=== PATIENT | female | born 1975 | race Caucasian/White ===

== ENCOUNTER 2019-01-24 13:18 | Emergency (ER) | payer OTHER ==
[~2019-01-24] VITALS: Ht 160 cm; Wt 86.2 kg
[2019-01-24] MEDS ORDERED: NABUMETONE 750750 M1 PO (13:48)
[2019-01-24] MEDS ORDERED: CENTANY30 GM TOP (13:48)
[2019-01-24] MEDS ORDERED: DOXYCYCLINE 10100 MG PO (13:48)
[2019-01-24 14:56] VITALS: BP 148/95
== END 2019-01-24 14:57 | disposition home or self-care (01) ==
LOC: M.ERS 13:18
DX: S61.412A Laceration without foreign body of left hand, initial encounter (principal); Z88.0 Allergy status to penicillin; W54.0XXA Bitten by dog, initial encounter; Y92.89 Other specified places as the place of occurrence of the external cause; Y93.89 Activity, other specified; Y99.8 Other external cause status